=== PATIENT | female | born 1965 | race African-American/Black ===

== ENCOUNTER 2016-08-02 16:29 | Emergency (ER) | payer MEDICAID, OTHER ==
[~2016-08-02] VITALS: Ht 172.7 cm; Wt 79.4 kg
[2016-08-02 17:11] LABS: Urine Bilirubin Negative (Negative); Urine Blood Negative /uL (Negative); Urine Color Yellow (Yellow); Urine Glucose Normal (Normal); Urine Ketone Negative (Negative); Urine Mucus FEW (None Seen); Urine Nitrite Negative (Negative); Urine RBC 1 /hpf (0 - 4); Urine Squamous Epithelial Cell FEW /hpf (<5); Urine pH 5.5 (5.0-8.0)
[2016-08-02 17:27] LABS: Basophils # (auto) 0 uL; Basophils % (auto) 0.3 % (0.0-2.0); CONDITION Y; DEFINITIVE SEE PRINTOUT; Eosinophils # (auto) 0 uL; Eosinophils % (auto) 0.8 % (0.0-7.0); Hematocrit 38.5 % (36.0-46.0); Hemoglobin 12.8 g/dL (12.2-16.2); Lymphocytes # (auto) 2.2 uL; Lymphocytes % (auto) 34.8 % (10.0-50.0); Mean Corpuscular Hemoglobin 26.7 pg (28.0-32.0); Mean Corpuscular Hgb Conc. 33.3 g/dL (32.0-36.0); Mean Corpuscular Volume 80.3 fL (80.0-100.0); Mean Platelet Volume 7.9 fL (7.4-10.4); Monocytes # (auto) 0.9 uL; Monocytes % (auto) 14.5 % (0.0-12.0); Neutrophils # (auto) 3.2 uL; Neutrophils % (auto) 49.6 % (37.0-80.0); Platelet Count (auto) 257 10^3/uL (140-450); Red Cell Distribution Width 16.9 % (11.6-16.0); White Blood Cell 6.4 10^3/uL (4.4-10.8)
[2016-08-02 17:52] LABS: Albumin 3.9 g/dL (3.4-5.0); BUN/Creatinine Ratio 22.1; Calcium 8.6 mg/dL (8.5-10.1); Potassium 3.4 mmol/L (3.5-5.1)
[2016-08-02 17:55] LABS: Bilirubin, Total 0.3 mg/dL (0.2-1.0); Total Protein 7.8 g/dL (6.4-8.2)
[2016-08-02 21:09] VITALS: BP 165/85
[2016-08-02] MEDS ORDERED: ALUM & MAG HYDROX-SIMETH LIQ(MAALOX) 30 ML PO ONE (22:15)
[2016-08-02] MEDS ORDERED: LIDOCAINE VISCOUS 2% 15ML UD PO ONE (22:15)
[2016-08-02] MEDS ORDERED: DONNATAL 5ml ORAL Elix (BELLADONNA ALK-PHENOBARB) PO ONE (22:15)
== END 2016-08-02 22:33 | disposition home or self-care (01) ==
LOC: ER 16:40
DX: K59.00 Constipation, unspecified (principal); R14.1 Gas pain
CPT/HCPCS: 36415; 74000; 80053; 81001; 81025; 85025

== ENCOUNTER 2016-10-15 16:17 | Emergency (ER) | payer MEDICAID, OTHER ==
[~2016-10-15] VITALS: Ht 170.2 cm; Wt 79.4 kg
[2016-10-15 16:31] VITALS: BP 183/99
[2016-10-15] MEDS: KETOROLAC TROMETH 60MG/2ML VIAL IM ONE ×2 (18:05→18:19)
== END 2016-10-15 18:32 | disposition home or self-care (01) ==
LOC: ER 16:23
DX: S83.91XA Sprain of unspecified site of right knee, initial encounter (principal); W01.0XXA Fall on same level from slipping, tripping and stumbling without subsequent striking against object, initial encounter; Y93.01 Activity, walking, marching and hiking; Y99.8 Other external cause status; Y92.89 Other specified places as the place of occurrence of the external cause
CPT/HCPCS: 73562; 99284; J1885

== ENCOUNTER 2016-10-27 01:52 | Emergency (ER) | payer OTHER ==
[~2016-10-27] VITALS: Ht 172.7 cm; Wt 79.4 kg
[2016-10-27] MEDS ORDERED: cloNIDine HCL 0.1 MG TAB ONE (01:57)
[2016-10-27] MEDS ORDERED: cloNIDine HCL 0.1 MG TAB PO ONE (02:30)
[2016-10-27 06:57] VITALS: BP 144/84
== END 2016-10-27 14:29 | disposition home or self-care (01) ==
LOC: ER 01:53
DX: R51 Headache (principal)
CPT/HCPCS: 36415; 70450; 84702

== ENCOUNTER 2017-10-10 11:45 | Observation (INO) | payer MEDICAID, OTHER ==
[~2017-10-10] VITALS: Ht 172.7 cm; Wt 78.5 kg
[2017-10-10 12:32] LABS: Eosinophils # (auto) 0 uL; Hemoglobin 12.8 g/dL (12.2-16.2); Lymphocytes # (auto) 1.3 uL; Neutrophils # (auto) 10.1 uL; Platelet Count (auto) 251 10^3/uL (140-450); Red Cell Distribution Width 16.6 % (11.8-14.3)
[2017-10-10 12:33] LABS: Basophils # (auto) 0 uL; Basophils % (auto) 0.2 % (0.0-2.0); Eosinophils % (auto) 0.2 % (0.0-7.0); Hematocrit 38.7 % (36.0-46.0); Lymphocytes % (auto) 10.2 % (10.0-50.0); Mean Corpuscular Hemoglobin 25.7 pg (28.0-32.0); Mean Corpuscular Volume 77.8 fL (80.0-100.0); Monocytes # (auto) 1.6 uL; Monocytes % (auto) 12.4 % (0.0-12.0); Red Blood Cells 4.97 10^6/uL (4.0-5.20); White Blood Cell 13.1 10^3/uL (4.4-10.8)
[2017-10-10 12:47] LABS: Alanine Aminotransferase 11 U/L (13-56); Albumin 3.5 g/dL (3.4-5.0); Anion Gap 11 (5-15); Aspartate Aminotransferase 6 U/L (15-37); BUN/Creatinine Ratio 15.5; Blood Urea Nitrogen 15 mg/dL (7-18); Calcium 8.4 mg/dL (8.5-10.1); Carbon Dioxide 23 mmol/L (21-32); Chloride 107 mmol/L (98-107); GFR African American 77 mL/min; GFR Non-African American 64 mL/min; Glucose 145 mg/dL (74-106); Magnesium 2.5 mg/dL (1.6-2.6); Potassium 3.1 mmol/L (3.5-5.1); Sodium 141 mmol/L (136-145)
[2017-10-10 12:52] LABS: Alkaline Phosphatase 66 U/L (45-117); Bilirubin, Total 0.8 mg/dL (0.2-1.0); Total Protein 8.2 g/dL (6.4-8.2)
[2017-10-10 14:56] LABS: Urine Bacteria NONE SEEN /hpf (None Seen); Urine Blood TRACE /uL (Negative); Urine Mucus FEW (None Seen); Urine Specific Gravity 1.029 (1.001-1.035); Urine WBC 3 /hpf (0 - 5)
[2017-10-10] MEDS ORDERED: SODIUM CHLORIDE 0.9% 1,000 ML IVB ONE (15:22)
[2017-10-10] MEDS ORDERED: ACETAMINOPHEN 325 MG TAB PO ONE (15:45)
[2017-10-10] MEDS ORDERED: ONDANSETRON HCL 4 MG/2 ML VIAL IV ONE (15:45)
[2017-10-10 15:57] LABS: Alcohol, Urine < 3.0 mg/dL (0-5); Amphetamine Screen, Urine NEGATIVE (NEGATIVE); Barbiturate Scree,Urine NEGATIVE (NEGATIVE); Benzodiazephine Screen, Urine NEGATIVE (NEGATIVE); Cannabinoid Screen, Urine NEGATIVE (NEGATIVE); Cocaine Screen, Urine NEGATIVE (NEGATIVE); Opiate Scree,Urine NEGATIVE (NEGATIVE); Phencyclidine Screen, Urine NEGATIVE (NEGATIVE)
[2017-10-10] MEDS ORDERED: POTASSIUM CHL 20 Meq TABLET PO ONE (18:00)
[2017-10-10 19:20] VITALS: BP 146/74
== END 2017-10-10 20:04 | disposition home or self-care (01) | DRG 103 ==
LOC: ER 11:45 → OVERFLOW 11:46 → ER 20:04
PROVIDERS: ADMIT Family Medicine; ATTEND Family Medicine
DX: R51 Headache (principal); E87.6 Hypokalemia; Z82.49 Family history of ischemic heart disease and other diseases of the circulatory system
CPT/HCPCS: 36415; 70450; 71045; 80053; 80307; 81001; 83735; 84484; 85025; 93005; 96374; 99285; G0378; J2405